=== PATIENT | male | born 1990 | race Caucasian/White ===

== ENCOUNTER 2023-07-22 09:21 | Outpatient (AMB) | payer OTHER, SELFPAY ==
--- NOTE | 2023-07-22 10:06 | AM.OFFWIN_ITS ---
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 Patient started having a sore throat a few days ago. He developed lymph node swellings which have since subsided. Patient has noticed white spots in his throat and fatigue symptoms. No family member is sick. PFSH Social History Patient Tobacco Use Status: Never used Tobacco Physical Exam Vital Signs: Last Vital Signs Temp 97.8 F 07/22/23 10:15 Pulse 80 07/22/23 10:15 BP 128/70 07/22/23 10:15 Pulse Ox 96 07/22/23 10:15 Oxygen Delivery Method Room Air 07/22/23 10:15 BMI result Body Mass Index 25.0 Const General: cooperative and healthy appearing Nutritional Appearance: well nourished Orientation/consciousness: patient oriented x3 Limitations: no limitations HEENT Other: Throat: Tonsils show whitish exudate Head: Yes normal to inspection Eyes General: appearance normal, both eyes and all related structures Neck Other: Neck: Posterior occipital lymph nodes palpable Neck: Yes normal visual inspection Chest Chest palpation & inspection: normal palpation of entire chest wall Resp Effort & Inspection: normal respiratory effort Neuro General: patient oriented x3 Results AMB Rapid Strep AMB Rapid Strep Negative Last Edit by Carrie Ahmadi CMA on 07/22/23 11:01 Results Reviewed Results Reviewed: Laboratory Last Values Strep Scn [facility] Negative 07/22/23 11:01 Assessment & Plan Assessment & Plan (1) Infectious mononucleosis: Code(s): B27.90 - Infectious mononucleosis, unspecified without complication Plan Strep test was negative. Blood work has been ordered. Will call with the results. Orders: Orders Monotest Today B27.90 - Infectious mononucleosis, unspecified without complication AMB Rapid Strep Screen Today Z13.9 - Encounter for screening, unspecified Coding Level of Care Code Est Pt Level 3 (43504) Diagnoses Infectious mononucleosis B27.90
[2023-07-22 10:15] VITALS: BP 128/70; PULSE 80; TEMP 36.6; O2SAT 96; BMI 25.0
== END 2023-07-22 10:38 | disposition home or self-care (01) ==
PROVIDERS: PCP Internal Medicine; Visit Provider Internal Medicine
DX: B27.90 Infectious mononucleosis, unspecified without complication (principal); J02.9 Acute pharyngitis, unspecified
CPT/HCPCS: 87880; 99213

== ENCOUNTER 2023-07-22 10:27 | Outpatient (REF) | payer OTHER, SELFPAY ==
[2023-07-22 15:09] LABS: Monotest Positive (Negative)
== END 2023-07-22 10:28 | disposition home or self-care (01) ==
LOC: HO.HMGCLDS 10:27
PROVIDERS: Visit Provider Internal Medicine
DX: B27.90 Infectious mononucleosis, unspecified without complication (principal)
CPT/HCPCS: 36415; 86308